=== PATIENT | female | born 1990 | race Caucasian/White ===

== ENCOUNTER → 2018-04-27 | Outpatient (CLI) | payer OTHER ==
[~2018-04-27] MED LIST: HYOS.125 SL
== END ==
LOC: LAB 15:30 → LAB SHORT 15:30
PROVIDERS: Nurse Practitioner Family
DX: Z01.411 Encounter for gynecological examination (general) (routine) with abnormal findings (principal)
CPT/HCPCS: G0145

== ENCOUNTER → 2018-11-18 | Outpatient (CLI) | payer OTHER ==
[2018-11-19 23:11] LABS: CHLAMYDIA TRACHOMATIS, NAA Negative (Negative); NEISSERIA GONORRHOEAE, NAA Negative (Negative)
== END ==
LOC: LAB EV 09:50 → LAB SHORT 09:50
PROVIDERS: Nurse Practitioner Family
DX: Z72.51 High risk heterosexual behavior (principal)
CPT/HCPCS: 87491; 87591

== ENCOUNTER → 2021-05-18 | Outpatient (CLI) | payer OTHER ==
[2021-05-21 13:10] LABS: HPV 16 Negative (Negative); HPV 18 Negative (Negative); HPV OTHER HR TYPES Negative (Negative)
== END | disposition home or self-care (01) ==
LOC: LAB 11:10 → LAB SHORT 11:10
PROVIDERS: Advanced Practice Midwife
DX: Z01.419 Encounter for gynecological examination (general) (routine) without abnormal findings (principal)
CPT/HCPCS: 87624; G0123

== ENCOUNTER 2024-09-04 09:32 | Inpatient (IN) | payer OTHER ==
[~2024-09-04] VITALS: Ht 160 cm; Wt 75.7 kg
[~2024-09-04 09:32] MED LIST changes: +Ativan1 MG PO; +BUPR75 PO; +HYDHCL25 PO; +IBUP800 PO; +LAMO25 PO; +Robaxin750 MG PO
[2024-09-04] MEDS ORDERED: FentaNYL Citrate 50 MCG/ML 2 ML Injection IV ONE ×4 (10:00→15:15)
[2024-09-04] MEDS ORDERED: Ondansetron HCl 2 MG / ML 2ML Vial IV ONE (10:05)
[2024-09-04 10:12] LABS: BASOPHILS ABSOLUTE AUTO 0.02 K/mm3 (0.00-0.23); BASOPHILS PERCENT AUTO 0 % (0-2); EOSINOPHILS ABSOLUTE AUTO 0.11 K/mm3 (0.00-0.68); EOSINOPHILS PERCENT AUTO 1 % (0-6); Hematocrit 28.5 % (33.0-51.0); Hemoglobin 9.6 g/dL (11.5-16.0); IMMATURE GRAN ABSOLUTE AUTO 0.06 K/mm3 (0.00-0.10); IMMATURE GRAN PERCENT AUTO 1 % (0-1); LYMPHOCYTES ABSOLUTE AUTO 1.34 K/mm3 (0.84-5.20); LYMPHOCYTES PERCENT AUTO 11 % (21-46); MONOCYTES ABSOLUTE AUTO 0.46 K/mm3 (0.16-1.47); MONOCYTES PERCENT AUTO 4 % (4-13); Mean Corpuscular HGB 33.3 pg (26.0-34.0); Mean Corpuscular HGB Conc 33.7 g/dL (31.5-36.5); Mean Corpuscular Volume 99 fL (80-100); Mean Platelet Volume 10.5 fL (9.1-12.4); NEUTROPHILS ABSOLUTE AUTO 10.01 K/mm3 (1.96-9.15); NEUTROPHILS PERCENT AUTO 83 % (41-73); Platelet Count 146 K/mm3 (150-400); RDW Coefficient Variation 11.7 % (11.7-14.2); RDW Standard Deviation 42.5 fL (35.1-46.3); Red Blood Cell Count 2.88 M/mm3 (3.80-5.20)
[2024-09-04 10:32] LABS: Albumin, Blood 2.7 g/dL (3.4-5.0); Albumin/Globulin Ratio 1.2 (0.8-1.8); Bilirubin, Total 0.3 mg/dL (0.1-1.0); Bun/Creatinine Ratio 15.3 (12.0-20.0); Calcium, Blood 7.6 mg/dL (8.5-10.1); Creatinine, Blood 0.72 mg/dL (0.40-1.00); Globulin, Blood 2.3 g/dL (2.2-4.0); Magnesium, Blood 1.7 mg/dL (1.6-2.4); Potassium, Blood 4.4 mmol/L (3.5-5.5)
[2024-09-04 10:41] LABS: Prothrombin Time Results 10.7 Sec (9.7-11.5)
[2024-09-04] MEDS ORDERED: Morphine Sulfate 4 MG/1 ML Injection IV ONE ×4 (11:00→14:50)
[2024-09-04] MEDS ORDERED: NS 1,000 ML IV SCH (11:35)
[2024-09-04] MEDS ORDERED: Ondansetron HCl 2 MG / ML 2ML Vial IV PRN (12:10)
[2024-09-04] MEDS ORDERED: FLU VACC TS2024-25(6MOS UP)/PF 45 MCG/0.5 ML SYRINGE IM SCH (12:10)
[2024-09-04] MEDS ORDERED: Acetaminophen 325 MG TABLET PO PRN (12:15)
[2024-09-04] MEDS ORDERED: Lactated Ringer's 1,000 ML IV SCH (12:15)
[2024-09-04] MEDS ORDERED: fentaNYL citrate 50 MCG/ML 30MLSYR IV PRN (12:25)
[2024-09-04] MEDS ORDERED: fentaNYL citrate 20 MCG/ML 30MLSYR IV PRN (13:25)
[2024-09-04 13:45] LABS: Hemoglobin 10.7 g/dL (11.5-16.0)
[2024-09-04] MEDS ORDERED: LAMO100 PO (16:10)
[2024-09-04] MEDS ORDERED: Adderall 20 MG20 MG PO ×2 (16:15→16:18)
[2024-09-04] MEDS ORDERED: AMPDEX10CR PO (16:17)
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
[2024-09-04 18:30] LABS: Hematocrit 28.3 % (33.0-51.0); Hemoglobin 9.7 g/dL (11.5-16.0)
[2024-09-04 19:22] VITALS: BP 126/72
[2024-09-04] MEDS ORDERED: Famotidine 20 MG Tab PO SCH (21:00)
[2024-09-04] MEDS ORDERED: Docusate Sodium 100 MG Cap PO SCH (21:00)
[2024-09-05 00:30] LABS: Hemoglobin 8.8 g/dL (11.5-16.0)
[2024-09-05 01:15] VITALS: BP 120/75
[2024-09-05 02:53] VITALS: BP 133/83
--- NOTE | 2024-09-05 06:47 | NUR ---
SHIFT SUMMARY AT START OF SHIFT, PT CRYING STATING SHE WAS IN A LOT OF PAIN. ABDOMINAL AREA, RIGHT SIDE, WRAPPING INTO HER BACK. PT REACHED MAX ON HER WHEEL CUTTER. THIS RN MEDICATED HER WITH TYLENOL FOR BREAKTHROUGH PAIN COVERAGE. PT SLEEPING PEACEFULLY. PT UP TO BATHROOM. SLOW AND STEADY, PT WAS ABLE TO AMBULATE WITH MINIMAL HELP FROM RN. MOSTLY NEEDED HELP GETTING OUT OF BED. WHILE PT WAS UP MOVING, SHE WENT INTO SINUS TACH AT 130, RELAXED, THEN WHILE LAB WAS IN FOR BLOOD DRAW, SHE WENT UP TO 104. PT SITTING UP IN BED WATCHING TV. 0023 LAB TRAE BLOOD FOR H&H. HGB WAS 8.8, HCT WAS 26. DOCTOR AARON ANSWERING SERVICE CALLED [phone]. CALLED BACK [phone]. DOCTOR STATED "PT IS HEMODYNAMICALLY STABLE, SO CONTINUE TO WATCH HER, AND WE WILL SEE WHERE WE ARE IN THE MORNING." 0230, PT PAIN LEVEL STARTING TO CLIMB AGAIN. PT OFFERED AND GIVEN MORE TYLENOL FOR BREAKTHROUGH PAIN. 0630, PT COMPLAINED OF NAUSEA. MEDICATED AND RESTING.
[2024-09-05 07:05] LABS: BASOPHILS ABSOLUTE AUTO 0.02 K/mm3 (0.00-0.23); BASOPHILS PERCENT AUTO 0 % (0-2); EOSINOPHILS ABSOLUTE AUTO 0.04 K/mm3 (0.00-0.68); EOSINOPHILS PERCENT AUTO 1 % (0-6); Hematocrit 24.4 % (33.0-51.0); Hemoglobin 8.2 g/dL (11.5-16.0); IMMATURE GRAN ABSOLUTE AUTO 0.03 K/mm3 (0.00-0.10); IMMATURE GRAN PERCENT AUTO 1 % (0-1); LYMPHOCYTES ABSOLUTE AUTO 0.96 K/mm3 (0.84-5.20); LYMPHOCYTES PERCENT AUTO 15 % (21-46); MONOCYTES ABSOLUTE AUTO 0.49 K/mm3 (0.16-1.47); MONOCYTES PERCENT AUTO 8 % (4-13); Mean Corpuscular HGB 32.3 pg (26.0-34.0); Mean Corpuscular HGB Conc 33.6 g/dL (31.5-36.5); Mean Corpuscular Volume 96 fL (80-100); Mean Platelet Volume 10.7 fL (9.1-12.4); NEUTROPHILS ABSOLUTE AUTO 5.01 K/mm3 (1.96-9.15); NEUTROPHILS PERCENT AUTO 76 % (41-73); Platelet Count 141 K/mm3 (150-400); RDW Coefficient Variation 13.1 % (11.7-14.2); RDW Standard Deviation 45.6 fL (35.1-46.3); Red Blood Cell Count 2.54 M/mm3 (3.80-5.20); White Blood Cell Count 6.55 K/mm3 (4.00-11.30)
[2024-09-05 07:14] VITALS: BP 126/77
[2024-09-05 07:25] LABS: Bun/Creatinine Ratio 9.8 (12.0-20.0); Calcium, Blood 7.9 mg/dL (8.5-10.1); Creatinine, Blood 0.71 mg/dL (0.40-1.00); Potassium, Blood 3.9 mmol/L (3.5-5.5)
[2024-09-05] MEDS ORDERED: BUSP10 PO (08:30)
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
[2024-09-05 11:29] VITALS: BP 120/72
[2024-09-05] MEDS ORDERED: HyDROXyzine HCl 25 MG Tab PO PRN (12:15)
[2024-09-05] MEDS ORDERED: LamoTRIgine 25 MG Tab PO SCH (12:15)
[2024-09-05 13:04] LABS: Hematocrit 24.2 % (33.0-51.0); Hemoglobin 8.4 g/dL (11.5-16.0)
[2024-09-05 14:22] VITALS: BP 118/76
[2024-09-05 19:36] VITALS: BP 124/71
--- NOTE | 2024-09-05 19:52 | NUR ---
SHIFT SUMMARY PAIN HAS BEEN MANAGED WITH FENTANYL CONSULTING ANALYST AND TYLENOL THIS SHIFT. PT'S H&H APPEARS MORE STABLE THIS EVENING. PT HAS BEEN ASYMTOMATIC OF LOW H&H EXCEPT FOR MILD TACHYCARDIA (LOW 100S) WITH ACTIVITY. PT IS TOLERATING A CLEAR LIQUID DIET. ABD REMAINS SOFT BUT TENDER. PT WILL BE NPO AT MIDNIGHT FOR POSSIBLE PROCEDURE TOMORROW WITH DR. LIVE. PT IS A SBA FOR HELP WITH LINES AND TUBES, SHE USES THE CALL LIGHT APPROPRIATELY. BEDSIDE REPORT GIVEN TO NEGRA LINDA.
[2024-09-05] MEDS ORDERED: BusPIRone HCl 10 MG Tab PO SCH (21:00)
[2024-09-05 21:41] LABS: Hematocrit 23.3 % (33.0-51.0); Hemoglobin 7.8 g/dL (11.5-16.0)
[2024-09-05] MEDS ORDERED: Prochlorperazine Edisylate 10 mg Vial IV PRN (22:00)
[2024-09-06] VITALS (15 sets, daily range): BP systolic 112–132; BP diastolic 69–104
--- NOTE | 2024-09-06 04:44 | NUR ---
NOC SUMMARY- PT PAIN HAS BEEN MAANGED WELL. PT HAD SOME ISSUES WITH CONTINUED N/V. PROVIDER CONTACTED AND ORDERED ADDITIONAL MEDS. PT RESPONDED WELL TO THE ORDERED COMPAZINE. PROVIDER ORDERED TO TRANSFUSE 1 UNIT PRBC IF PT'S HGB <7. PT IS VOIDING WELL. PT HAS BEEN ABLE TO REST SOME THIS SHIFT. CALL LIGHT IN REACH.
[2024-09-06 05:27] LABS: BASOPHILS ABSOLUTE AUTO 0.01 K/mm3 (0.00-0.23); BASOPHILS PERCENT AUTO 0 % (0-2); EOSINOPHILS ABSOLUTE AUTO 0.05 K/mm3 (0.00-0.68); EOSINOPHILS PERCENT AUTO 1 % (0-6); Hematocrit 22.9 % (33.0-51.0); Hemoglobin 7.9 g/dL (11.5-16.0); IMMATURE GRAN ABSOLUTE AUTO 0.02 K/mm3 (0.00-0.10); IMMATURE GRAN PERCENT AUTO 0 % (0-1); LYMPHOCYTES PERCENT AUTO 20 % (21-46); MONOCYTES ABSOLUTE AUTO 0.53 K/mm3 (0.16-1.47); MONOCYTES PERCENT AUTO 10 % (4-13); Mean Corpuscular HGB 32.5 pg (26.0-34.0); Mean Corpuscular HGB Conc 34.5 g/dL (31.5-36.5); Mean Corpuscular Volume 94 fL (80-100); Mean Platelet Volume 10.5 fL (9.1-12.4); NEUTROPHILS ABSOLUTE AUTO 3.72 K/mm3 (1.96-9.15); NEUTROPHILS PERCENT AUTO 68 % (41-73); Platelet Count 145 K/mm3 (150-400); RDW Coefficient Variation 12.4 % (11.7-14.2); RDW Standard Deviation 42.7 fL (35.1-46.3); Red Blood Cell Count 2.43 M/mm3 (3.80-5.20); White Blood Cell Count 5.43 K/mm3 (4.00-11.30)
[2024-09-06 06:04] LABS: Bun/Creatinine Ratio 9.6 (12.0-20.0); Calcium, Blood 8.4 mg/dL (8.5-10.1); Creatinine, Blood 0.63 mg/dL (0.40-1.00); Potassium, Blood 3.8 mmol/L (3.5-5.5)
--- NOTE | 2024-09-06 07:45 | NUR ---
REPORT FROM MADDI HICKMAN. ASSUMING CARE. PT IS NPO AT THIS TIME.
[2024-09-06] MEDS ORDERED: NS 250 ML IV ONE ×2 (09:41→10:13)
[2024-09-06] MEDS ORDERED: Heparin Sodium 1000 Units/ML 10ML MDV ONE (09:42)
[2024-09-06] MEDS ORDERED: NS 1,000 ML IV ONE ×2 (09:42→09:57)
--- NOTE | 2024-09-06 09:55 | NUR ---
PT TO CONTENT STRATEGY LEAD WITH CRISTAL LINDA.
[2024-09-06] MEDS ORDERED: FentaNYL Citrate 50 MCG/ML 2 ML Injection ONE (09:57)
[2024-09-06] MEDS ORDERED: Midazolam HCl 1MG / ML 2ML Vial ONE (09:57)
[2024-09-06] MEDS ORDERED: Vancomycin HCl 1000 MG ADDvantage ONE (10:13)
[2024-09-06] MEDS ORDERED: NS 250 ML IV PRN (12:20)
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
--- NOTE | 2024-09-06 15:55 | NUR ---
PATIENT UP TO BATHROOM FOR THE 1ST TIME POST EMBOLIZATION. SBA TO HELP MANAGE CORDS/PUMP. DENIES DIZZINESS. RIGHT FEMORAL SITE REMAINS SOFT. DRESSING C/D/I. NO SIGNS OF BLEEDING. PATIENT STATES PAIN HAS IMPROVED. DRINKING ICED TEA, SPRITE AND WATER. DENIES NAUSEA. DIRECTOR CASE MANAGEMENT PUMPS CONTINUES PER EMAR. CALL LIGHT IN REACH. SPIRITUAL CARE AND DENTAL HYGENIST TO BEDSIDE. PATIENT DENIES NEEDS. CALL LIGHT IN REACH.
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
--- NOTE | 2024-09-06 18:13 | NUR ---
SHIFT SUMMARY: SEE PREVIOUS NOTES FOR UPDATES. VITAL SIGNS STABLE. TELE CONTINUES TO SHOW SR/ST. REMAINS ON ROOM AIR. IMPROVED ABDOMINAL PAIN WITH TESTER ARMATURE OR FIELDS. RENE NAUSEA. TOLERATING CLEAR LIQUID DIET. EATING FROZEN FRUIT ICE AT THIS TIME. MOM AT BEDSIDE. UP TO BATHROOM WITH THIS RN. RIGHT FEMORAL GROIN DRESSING C/D/I AND REMAINS SOFT AND NONTENDER. NO SIGNS OF BLEEDING. COMPLAINS OF HEADACHE, MEDICATED WITH TYLENOL. TESTER ARMATURE OR FIELDS VOLUME CLEARED WITH 2ND RN, SEE CHARTING IN EMAR.
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
[2024-09-06 21:39] LABS: Hematocrit 23.9 % (33.0-51.0)
[2024-09-07 04:44] LABS: BASOPHILS ABSOLUTE AUTO 0.02 K/mm3 (0.00-0.23); BASOPHILS PERCENT AUTO 0 % (0-2); EOSINOPHILS ABSOLUTE AUTO 0.11 K/mm3 (0.00-0.68); EOSINOPHILS PERCENT AUTO 2 % (0-6); Hematocrit 22.6 % (33.0-51.0); Hemoglobin 7.8 g/dL (11.5-16.0); IMMATURE GRAN ABSOLUTE AUTO 0.03 K/mm3 (0.00-0.10); IMMATURE GRAN PERCENT AUTO 1 % (0-1); LYMPHOCYTES ABSOLUTE AUTO 0.78 K/mm3 (0.84-5.20); LYMPHOCYTES PERCENT AUTO 12 % (21-46); MONOCYTES ABSOLUTE AUTO 0.53 K/mm3 (0.16-1.47); MONOCYTES PERCENT AUTO 8 % (4-13); Mean Corpuscular HGB 32.8 pg (26.0-34.0); Mean Corpuscular HGB Conc 34.5 g/dL (31.5-36.5); Mean Corpuscular Volume 95 fL (80-100); Mean Platelet Volume 10.2 fL (9.1-12.4); NEUTROPHILS ABSOLUTE AUTO 4.95 K/mm3 (1.96-9.15); NEUTROPHILS PERCENT AUTO 77 % (41-73); Platelet Count 167 K/mm3 (150-400); RDW Coefficient Variation 12.4 % (11.7-14.2); RDW Standard Deviation 42.7 fL (35.1-46.3); Red Blood Cell Count 2.38 M/mm3 (3.80-5.20); White Blood Cell Count 6.42 K/mm3 (4.00-11.30)
[2024-09-07] MEDS ORDERED: FentaNYL Citrate 50 MCG/ML 2 ML Injection IV PRN (04:45)
[2024-09-07] MEDS ORDERED: OxyCODONE HCL 5 MG TAB PO PRN (05:10)
--- NOTE | 2024-09-07 05:47 | NUR ---
SHIFT SUMMARY PT CONTINUES TO REST IN BED, SLEEPING BUT AROUSABLE. PT ANSWERS QUESTIONS APPROPRIATELY, FOLLOWS DIRECTION WHEN PROMPTED AND IS ABLE TO MAKE HER NEEDS KNOWN. PT MOVES EXTREMITIES EQUALLY BILATERALLY, AMBULATES IN THE ROOM INDEPENDENTLY. PT HAVING GENERALIZED PAIN, FENTANYL MARKETING EFFECTIVENESS MANAGER AVAILABLE TO PT. PT HAVING INCREASED PAIN WHILE SLEEPING DUE TO NOT RECEIVING MARKETING EFFECTIVENESS MANAGER DOSES, ORDER RECEIVED FOR PO PAIN MEDICATION, SEE EMAR. HR 80-130'S SINUS, MAP >65. PT DENIES CP/PRESSURE. PT ON RA, OXYGEN SATURATION >95%. ABDOMEN SOFT, TENDER ON PALPATION, BOWEL TONES ACTIVE THROUGHOUT. PT AMBULATES TO BEDSIDE TOILET TO VOID. PIV IN PLACE TO RIGHT WRIST, NS TKO INFUSING WELL MARKETING EFFECTIVENESS MANAGER. BED IN LOWEST POSITION, CALL LIGHT WITHIN REACH, CARE CONTINUES.
[2024-09-07 07:28] VITALS: BP 123/82
[2024-09-07] MEDS ORDERED: Polyethylene Glycol 3350 17 gm PO PRN (11:00)
[2024-09-07] MEDS ORDERED: Polyethylene Glycol 3350 17 gm PO ONE (11:00)
[2024-09-07 11:52] VITALS: BP 142/86
[2024-09-07 15:28] VITALS: BP 87/60
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
[2024-09-07 21:06] VITALS: BP 141/86
[2024-09-08] VITALS (7 sets, daily range): BP systolic 117–136; BP diastolic 74–95
--- NOTE | 2024-09-08 05:07 | NUR ---
SHIFT SUMMARY NOC. PT A/OX4, CALLS APPROPRIATELY, SBA TO INDEPENDENT IN THE ROOM. RIGHT GROIN SITE FROM SPLENIC ARTERY EMBOLIZATION IS C/D/I WITH CHG TEGADERM. PT HAS BOLUS FENTANYL CENTRIFUGAL CASTING MACHINE TENDER AND ORAL OXYCODONE, TYLENOL FOR PAIN MANAGEMENT. PT CONTINUES TO HAVE PAIN IN NECK/SHOULDERS AND ABDOMEN THIS SHIFT. PT MEDICATED FOR NAUSEA X2 THIS SHIFT, NO VOMIT OR DRY HEAVE EPISODES. PT VOIDING URINE AND WANTS TO BE CLEAR LIQUIDS THIS AM. TELEMETRY MONITORING HAD NO EVENTS AND NSR. CALL LIGHT IN REACH.
[2024-09-08 05:16] LABS: BASOPHILS ABSOLUTE AUTO 0.02 K/mm3 (0.00-0.23); BASOPHILS PERCENT AUTO 0 % (0-2); EOSINOPHILS ABSOLUTE AUTO 0.14 K/mm3 (0.00-0.68); EOSINOPHILS PERCENT AUTO 2 % (0-6); Hematocrit 24.8 % (33.0-51.0); Hemoglobin 8.3 g/dL (11.5-16.0); IMMATURE GRAN ABSOLUTE AUTO 0.02 K/mm3 (0.00-0.10); IMMATURE GRAN PERCENT AUTO 0 % (0-1); LYMPHOCYTES ABSOLUTE AUTO 1.18 K/mm3 (0.84-5.20); LYMPHOCYTES PERCENT AUTO 19 % (21-46); MONOCYTES ABSOLUTE AUTO 0.56 K/mm3 (0.16-1.47); MONOCYTES PERCENT AUTO 9 % (4-13); Mean Corpuscular HGB 32.3 pg (26.0-34.0); Mean Corpuscular HGB Conc 33.5 g/dL (31.5-36.5); Mean Corpuscular Volume 97 fL (80-100); Mean Platelet Volume 9.9 fL (9.1-12.4); NEUTROPHILS PERCENT AUTO 69 % (41-73); Platelet Count 208 K/mm3 (150-400); RDW Coefficient Variation 12.6 % (11.7-14.2); RDW Standard Deviation 43.2 fL (35.1-46.3); Red Blood Cell Count 2.57 M/mm3 (3.80-5.20); White Blood Cell Count 6.12 K/mm3 (4.00-11.30)
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
--- NOTE | 2024-09-08 18:27 | NUR ---
DUE TO IDAY TOMORROW (09/09/24), ALL LOCAL PHARMACIES ARE CLOSED. PER DR. WALKER, OK TO GIVE PT'S FAMILY PRESCRIPTION FOR OXYCODONE TONIGHT TO HAVE FILLED ANTICIPATING DISCHARGE IN AM.
--- NOTE | 2024-09-08 21:00 | NUR ---
TRANSFER PT ARRVIED TO UNIT FROM PCU VIA W/C. PT TRANSFERRED TO BED IND. PT HAS CUT FILE CLERK, ON DEMAND ONLY. R FEMORAL SITE FROM SPLENIC ARTERY EMBOLISM IS C/D/I. VSS. CALL LIGHT GIVEN TO PT. ALL BELONINGS IN ROOM WITH PT. NO OTHER NEEDS AT THIS TIME.
[2024-09-09 04:45] VITALS: BP 133/79
--- NOTE | 2024-09-09 05:00 | NUR ---
SHIFT SUMMARY NO ACUTE CHANGES SINCE COMING TO THE FLOOR. PT PAIN MANAGED PER EMAR. TOLERATING PO INTAKE. VOIDING. R FEMORAL SITE COVERED W/ TEGADERM C/D/I. VSS. NO OTHER CONCERNS AT THIS TIME, CALL LIGHT WITHIN REACH
[2024-09-09 07:45] VITALS: BP 132/85
[2024-09-09] MEDS ORDERED: OXYC5 PO (12:08)
[2024-09-09 12:36] VITALS: BP 123/87
--- NOTE | 2024-09-09 12:38 | NUR ---
DISCHARGED REVIEWED DC INSTRUCTIONS W/PT; VERBALIZED UNDERSTANDING. SIGNED DC PAPERWORK. VSS. FAMILY MEMBER PRESENT. PT LEFT UNIT BY AMBULATION, DECLINING WC, W/POSSESSIONS AND DC PAPERWORK IN HAND TO RIDE OUTSIDE.
== END 2024-09-09 12:36 | disposition home or self-care (01) | DRG 982 ==
LOC: ER 09:32 → SURS 12:08 → PCU 12:09 → SURS 12:10 → PCU 09-06 10:58 → SURS 09-08 21:10
PROVIDERS: Student in an Organized Health Care Education/Training Program; ADMIT Surgery
PROC: 30233N1 Transfusion of Nonautologous Red Blood Cells into Peripheral Vein, Percutaneous Approach (ICD-10-PCS; 2024-09-04)
PROC: 04V43DZ Restriction of Splenic Artery with Intraluminal Device, Percutaneous Approach (ICD-10-PCS; principal; 2024-09-06)
PROC: B41B1ZZ Fluoroscopy of Other Intra-Abdominal Arteries using Low Osmolar Contrast (ICD-10-PCS; 2024-09-06)
DX: S36.032A Major laceration of spleen, initial encounter (principal); D62 Acute posthemorrhagic anemia; I95.89 Other hypotension; F41.9 Anxiety disorder, unspecified; F32.A Depression, unspecified; R73.9 Hyperglycemia, unspecified; D72.829 Elevated white blood cell count, unspecified; Z88.0 Allergy status to penicillin; V89.2XXA Person injured in unspecified motor-vehicle accident, traffic, initial encounter; Y92.488 Other paved roadways as the place of occurrence of the external cause
CPT/HCPCS: 36415; 36430; 37242; 70450; 71260; 72125; 74177; 75726; 76937; 80048; 80053; 83735; 84703; 85014; 85018; 85025; 85610; 85730; 86850; 86900; 86901; 86923; 96374; 96375; 96376; 99152; 99153; 99285-25; A9270; C1760; C1769; C1887; G0378; J0780; J1644; J2250; J2270; J2405; J3010; J3370; J7030; J7050; J7120; P9016; Q9967

== ENCOUNTER 2024-09-22 05:00 | Emergency (ER) | payer OTHER ==
[~2024-09-22] VITALS: Ht 160 cm; Wt 69.8 kg
[~2024-09-22 05:00] MED LIST changes: +AMPDEX10CR PO; +Adderall 20 MG20 MG PO; +BUSP10 PO; +LAMO100 PO; +OXYC5 PO
[2024-09-22] MEDS ORDERED: Ondansetron HCl 2 MG / ML 2ML Vial IV ONE (06:15)
[2024-09-22] MEDS ORDERED: Ipratropium/Albuterol SulF 2.5-0.5MG/3 ML Amp INH ONE (06:15)
[2024-09-22] MEDS ORDERED: Lactated Ringer's 1,000 ML IV ONE (06:15)
[2024-09-22] MEDS ORDERED: Morphine Sulfate 4 MG/1 ML Injection IV ONE (06:15)
[2024-09-22 06:30] VITALS: BP 109/71
[2024-09-22 06:46] LABS: BASOPHILS ABSOLUTE AUTO 0.03 K/mm3 (0.00-0.23); BASOPHILS PERCENT AUTO 1 % (0-2); EOSINOPHILS ABSOLUTE AUTO 0.11 K/mm3 (0.00-0.68); EOSINOPHILS PERCENT AUTO 2 % (0-6); Hematocrit 36.2 % (33.0-51.0); IMMATURE GRAN ABSOLUTE AUTO 0.02 K/mm3 (0.00-0.10); IMMATURE GRAN PERCENT AUTO 0 % (0-1); LYMPHOCYTES ABSOLUTE AUTO 1.43 K/mm3 (0.84-5.20); LYMPHOCYTES PERCENT AUTO 25 % (21-46); MONOCYTES PERCENT AUTO 7 % (4-13); Mean Corpuscular HGB Conc 33.1 g/dL (31.5-36.5); Mean Corpuscular Volume 97 fL (80-100); Mean Platelet Volume 10.1 fL (9.1-12.4); NEUTROPHILS ABSOLUTE AUTO 3.65 K/mm3 (1.96-9.15); NEUTROPHILS PERCENT AUTO 65 % (41-73); Platelet Count 320 K/mm3 (150-400); RDW Coefficient Variation 12.6 % (11.7-14.2); RDW Standard Deviation 44.5 fL (35.1-46.3); Red Blood Cell Count 3.75 M/mm3 (3.80-5.20); White Blood Cell Count 5.64 K/mm3 (4.00-11.30)
[2024-09-22 07:04] LABS: Albumin, Blood 3.7 g/dL (3.4-5.0); Albumin/Globulin Ratio 1.1 (0.8-1.8); Bilirubin, Total 0.3 mg/dL (0.1-1.0); Bun/Creatinine Ratio 11.3 (12.0-20.0); Calcium, Blood 9.3 mg/dL (8.5-10.1); Creatinine, Blood 0.8 mg/dL (0.40-1.00); Globulin, Blood 3.4 g/dL (2.2-4.0); Magnesium, Blood 2.2 mg/dL (1.6-2.4); Total Protein, Blood 7.1 g/dL (6.4-8.2)
== END 2024-09-22 08:49 | disposition home or self-care (01) ==
LOC: ER 05:00
PROVIDERS: Student in an Organized Health Care Education/Training Program
DX: S20.211A Contusion of right front wall of thorax, initial encounter (principal); S36.039D Unspecified laceration of spleen, subsequent encounter; R06.02 Shortness of breath; F41.9 Anxiety disorder, unspecified; F17.210 Nicotine dependence, cigarettes, uncomplicated; Z88.0 Allergy status to penicillin; Z79.899 Other long term (current) drug therapy; W22.8XXA Striking against or struck by other objects, initial encounter; V49.9XXD Car occupant (driver) (passenger) injured in unspecified traffic accident, subsequent encounter
CPT/HCPCS: 71046; 74177; 80053; 83735; 85025; 93005; 93010; 94644; 94664; 96361; 96374-59; 96375; 99284-25; J2270; J2405; J7120; Q9967

== ENCOUNTER → 2025-04-20 | Outpatient (CLI) | payer OTHER | LOC: LAB SHORT 14:10 → LAB 14:10 | PROVIDERS: Family Medicine | DX: Z12.4 Encounter for screening for malignant neoplasm of cervix (principal) | CPT/HCPCS: 87624; G0123 ==